=== PATIENT | female | born 1980 | race Caucasian/White ===

== ENCOUNTER 2022-02-21 20:29 | Emergency (ER) | payer OTHER ==
[~2022-02-21] VITALS: Ht 157.5 cm; Wt 58.2 kg
[2022-02-21 20:30] VITALS: BP 116/74
[2022-02-21] MEDS ORDERED: NITR-67 PO (21:51)
[2022-02-21] MEDS ORDERED: PYRI1TAB5 PO (21:51)
[2022-02-21] MEDS ORDERED: NITROFURANTOIN (MACROBID) 100 MG CAP PO ONE (21:55)
[2022-02-21] MEDS ORDERED: PHENAZOPYRIDINE 100 MG TAB PO ONE (21:55)
== END 2022-02-21 22:11 | disposition home or self-care (01) ==
LOC: M ED 20:29
DX: N39.0 Urinary tract infection, site not specified (principal)

== ENCOUNTER 2022-03-05 15:49 | Emergency (ER) | payer OTHER ==
[~2022-03-05] VITALS: Ht 157.5 cm; Wt 57.4 kg
[~2022-03-05 15:49] MED LIST: NITR-67 PO; PYRI1TAB5 PO
[2022-03-05 17:15] LABS: GLUCOSE, URINE (UA) MANUAL NEGATIVE (NEGATIVE); KETONE, URINE MANUAL OBSCURED mg/dL (NEGATIVE)
[2022-03-05 17:16] LABS: BILIRUBIN, URINE MANUAL OBSCURED (NEGATIVE); UROBILINOGEN, URINE MANUAL OBSCURED mg/dl (NORMAL)
[2022-03-05 17:19] LABS: RBC, URINE 0-1 /hpf (0-3)
[2022-03-05 17:20] LABS: AMORPHOUS SEDIMENT, URINE MOD AMOUNT (NEGATIVE); BACTERIA, URINE SMALL AMOUNT; HYALINE CAST, URINE NONE SEEN /lpf (0-1); MUCUS, URINE MOD AMOUNT (NEGATIVE); SQUAMOUS EPITHELIAL CELL URINE MOD AMOUNT /hpf (SMALL AMT)
[2022-03-05] MEDS ORDERED: NS 1,000 ML IV ONE (18:35)
[2022-03-05 19:13] LABS: BASO # 0.1 10^3/uL (0.0-0.2); BASO % 1.5 % (0.0-1.0); EOS # 0.1 10^3/uL (0.0-0.5); EOS % 1.6 % (0.0-3.0); HEMATOCRIT 39.5 % (36.0-47.0); HEMOGLOBIN 12.9 g/dl (12.0-15.5); LYMPH # 2.3 10^3/uL (1.5-5.0); LYMPH % 25.8 % (24.0-44.0); MEAN CORPUSCULAR HEMOGLOBIN 29.5 pg (27.0-33.0); MEAN CORPUSCULAR HGB CONC 32.7 g/dl (32.0-36.5); MEAN CORPUSCULAR VOLUME 90.4 fl (80.0-96.0); MONO # 0.6 10^3/uL (0.0-0.8); MONO % 6.2 % (2.0-8.0); NEUTROPHILS # 5.7 10^3/uL (1.5-8.5); NEUTROPHILS % 64.4 % (36.0-66.0); PLATELET COUNT, AUTOMATED 236 10^3/uL (150-450); RED BLOOD COUNT 4.37 10^6/uL (4.00-5.40); WHITE BLOOD COUNT 8.9 10^3/uL (4.0-10.0)
[2022-03-05 19:31] LABS: ALBUMIN 3.6 GM/DL (3.2-5.2); BILIRUBIN,DIRECT 0.2 MG/DL (0.0-0.2); BILIRUBIN,TOTAL 0.3 MG/DL (0.2-1.0); TOTAL PROTEIN 6.8 GM/DL (6.4-8.2)
[2022-03-05] MEDS ORDERED: ISOVUE-370 76% 100ML VIAL As Ordered ONE (19:32)
[2022-03-05] MEDS ORDERED: SULF1TAB23 PO (21:05)
[2022-03-05] MEDS ORDERED: BACTRIM 160MG/800MG DS TAB PO ONE (21:15)
[2022-03-05 21:45] VITALS: BP 114/66
== END 2022-03-05 21:55 | disposition home or self-care (01) ==
LOC: M ED 15:49
DX: R30.0 Dysuria (principal); Z79.899 Other long term (current) drug therapy
CPT/HCPCS: 36415; 74177; 80047; 80076; 81000; 81015; 83690; 84702; 85025; 87086; 96360; 96361; 99284; Q9967